=== PATIENT | male | born 1980 | race Caucasian/White ===

== ENCOUNTER 2018-01-01 09:01 | Emergency (ER) | payer OTHER, BC ==
[2018-01-01 09:21] VITALS: BP 153/89
[2018-01-01] MEDS ORDERED: DEXAMETHASONE SOD PHOS INJ 10 MG/1 ML VIAL IV ONE (09:57)
[2018-01-01] MEDS ORDERED: HYDROCODONE/ACETAMINOPHEN 5-325 MG (6 TAB/ER DISP) PO PRN (09:57)
--- NOTE | 2018-01-01 10:03 | ER Document Report ---
ED General - General Chief Complaint: Low Back Pain Stated Complaint: BACK,BUTTOCKS,LEG PAIN Time Seen by Provider: 01/01/18 09:27 Mode of Arrival: Ambulatory TRAVEL OUTSIDE OF THE [place] IN LAST 30 DAYS: No - HPI Notes: 37-year-old male with a history of chronic back pain presents to the ED for complaints of ascute exacerbation of chronic back pain. Denies any trauma. Patient has had multiple MRIs in the past. Has had chronic back pain since 2004 [place]. Patient was seen at the [facility] this morning, given a shot of Toradol 60 mg IM, was advised to come to the ER for further evaluation. Patient states he was seeing pain management and a spinal surgeon "years ago" but is no longer in pain management. Denies fevers, chills, chest pain,palpitations, shortness of breath, dyspnea, nausea, vomiting, diarrhea, abdominal pain, hematuria,blurred vision, double vision, loss of vision, speech changes, LH, dizziness, syncope, headaches, wheezing, ST, URI, neck pain, weakness, bowel or bladder dysfunction, saddle anesthesia, numbness or tingling in bilateral upper or lower extremities equally, muscle paralysis, weakness in bilateral upper or lower extremities equally or rash. States his pain is 7 out of 10. Mother drove patient. - Related Data Allergies/Adverse Reactions: codeine Allergy (Verified 01/01/18 09:09) Past Medical History - General Information source: Patient - Social History Smoking Status: Current Every Day Smoker Chew tobacco use (# tins/day): No Frequency of alcohol use: Occasional Drug Abuse: None Family History: Reviewed & Not Pertinent Patient has suicidal ideation: No Patient has homicidal ideation: No Renal/ Medical History: Denies: Hx Peritoneal Dialysis Past Surgical History: Reports: Hx Appendectomy Review of Systems - Review of Systems Constitutional: No symptoms reported EENT: No symptoms reported Cardiovascular: No symptoms reported Respiratory: No symptoms reported Gastrointestinal: No symptoms reported Genitourinary: No symptoms reported Male Genitourinary: No symptoms reported Musculoskeletal: See HPI Skin: No symptoms reported Hematologic/Lymphatic: No symptoms reported Neurological/Psychological: No symptoms reported Physical Exam - Vital signs Vitals: Temp Pulse Resp BP Pulse Ox 98.2 F 59 L 21 H 153/89 H 98 01/01/18 09:18 01/01/18 09:18 01/01/18 09:18 01/01/18 09:18 01/01/18 09:18 - Notes Notes: PHYSICAL EXAMINATION: GENERAL: Well-appearing, well-nourished and in no acute distress. HEAD: Atraumatic, normocephalic. EYES: Pupils equal round and reactive to light, extraocular movements intact, sclera anicteric, conjunctiva are normal. ENT: Nares patent, oropharynx clear without exudates. Moist mucous membranes. NECK: Normal range of motion, supple without lymphadenopathy LUNGS: Breath sounds clear to auscultation bilaterally and equal. No wheezes rales or rhonchi. HEART: Regular rate and rhythm without murmurs ABDOMEN: Soft, nontender, nondistended abdomen. No guarding, no rebound. No masses appreciated. Musculoskeletal: Normal range of motion, no pitting or edema. No cyanosis. NEUROLOGICAL: Cranial nerves grossly intact. Normal speech, normal gait. Normal sensory, motor exams. Pain with flexion and extension at 45 degrees, negative straight leg test. Normal hip rotation. DTR +2 in BLE equally. Strength 5 out of 5 both distally and proximally to bilateral lower extremities normal motor and sensory function in BLE equally. Distal pulses + 2 BLE equally. Noted paraspinal tenderness near L2 and L3 on left No spinal tenderness. No CVA tenderness bilaterally. Femoral pulses + 2 bilaterally and equally. No abrasions, scars, lacerations, ecchymosis of any recent trauma. normal gait. PSYCH: Normal mood, normal affect. SKIN: Warm, Dry, normal turgor, no rashes or lesions noted. Course - Re-evaluation Re-evalutation: 01/01/18 10:08 Presentation of a well appearing patient complaining of acute on chronic back pain. She is afebrile, vitals stable and in no acute distress no rapid progression of symptoms, systemic symptoms including fevers, chills, weight loss , history of recent bacterial infection, bilateral symptoms, numbness, weakness , difficulty walking, urinary retention or bowel incontinence, personal history of cancer, immunosuppression, diabetes, known AAA, or history of IV drug use. Exam is without point tenderness over vertebral bodies, pulsatile abdominal mass , and patient has symmetric and intact lower extremity strength, sensation, and reflexes without clonus. 2+ symmetric medial malleolar and dorsalis pedis pulses. Left paraspinal tenderness near L2-L3. Based on history and physical, I have a very low suspicion of a concerning etiology of pain including epidural compression syndrome, spinal infection, transverse myelitis, malignancy, abdominal aortic aneurysm, renal colic, acute lower extremity claudication, neurogenic claudication, ankylosing spondylitis, or other intra-abdominal process. Due to absence of concerning risk factors in history and physical as well as absence of rapidly progressive, severe, or bilateral symptoms, will defer imaging at this point. Plan to manage conservatively with outpatient analgesia, analgesia, and physical therapy. 8 mg of Decadron given as well as a [place]. Advised patient that he may become sedated from taking [place], do not drive, drink or operate heavy machinery while taking [place]. - Acetaminophen 650 q 4 + ibuprofen 600 q 6 - Continue normal daily activities as tolerated by pain - Provide with standard musculoskeletal back pain exercise instructions - Instruct to follow up with primary care provider if symptoms not improving and reevaluation within 24-48 hours by primary care provider. Orthopedic referral given. - Provide careful return precautions and concerning symptoms to watch for. Return immediately for any new or worsening symptoms. Follow up with primary care provider, call tomorrow to make followup appointment. - Vital Signs Vital signs: Temp Pulse Resp BP Pulse Ox 98.2 F 59 L 21 H 153/89 H 98 01/01/18 09:18 01/01/18 09:18 01/01/18 09:18 01/01/18 09:18 01/01/18 09:18 Discharge - Discharge Clinical Impression: Left sided sciatica Condition: Good Disposition: HOME, SELF-CARE Instructions: Muscle Strain ([facility]), Low Back Pain ([facility]), Oral Narcotic Medication ([facility]), Warm Packs ([facility]) Additional Instructions: LOW BACK PAIN: Three out of every four people will have an episode of disabling back pain during their lifetime. Most commonly the pain is due to straining of the muscles and ligaments in the low back. Usual treatment includes: (1) Rest on a firm surface. Avoid lying on your stomach. (2) Ice pack the painful area. After a few days, gentle heat may be used intermittently to relax the area, or ice packs can be continued. (3) Medication may be needed -- muscle relaxers and antiinflammatory medicines are commonly used. (4) As the back improves, exercises are prescribed to strengthen the back and abdominal muscles. Your doctor will advise you on the proper care for your back at each stage in your recovery. You may be better in a few days -- or healing may take several weeks. If new symptoms of a "herniated disc" (radiation of pain, numbness, or tingling down the back of the leg or weakness in the leg) occur, you should be re-examined. Further testing may be necessary. PAIN MEDICATION INJECTION: You have received an injection of a pain medication. You should experience significant pain relief within 45 minutes. If this injection was a narcotic -- it will impair your judgement, slow your reaction time and make you sleepy (as well as relieve your pain). Narcotics also can cause nausea. You should not drive, work with machinery, or perform any task requiring mental alertness until all effects of the medication are gone -- six to eight hours. Do not take any alcohol, or sedatives, and do not take any other medication without checking with your physician. MUSCLE RELAXERS: Muscle relaxing medications are usually prescribed for acute muscle spasm or injury to the neck and back. They are often combined with antiinflammatory pain medication for increased relief. You may stop the muscle relaxer when the pain and stiffness have improved. Start the medication again if spasms recur. Muscle relaxers may cause drowsiness, especially with the first dose. Do not operate machinery or drive while under the effects of the medication. Most muscle relaxers last up to 24 hours. Do not combine the medication with alcohol. ICE PACKS: Apply ice packs frequently against the painful area. Many different schedules are recommended, such as "20 minutes on, 20 minutes off" or "one hour ice, two hours rest." If you need to work, you may need to go longer between ice treatments. You should plan to have the area ice packed AT LEAST one fourth of the time. The ice should be applied over the wrap, tape, or splint, or over a layer of cloth -- not directly against the skin. Some ice bags have a built-in cloth and can be put directly on the skin. WARM PACKS: After approximately two days, apply gentle heat (such as a heating pad or hot water bottle) for about 20 to 30 minutes about every two hours -- at least four times daily. Warmth and elevation will help you make a more rapid recovery , and will ease the pain considerably. Do not use HOT heat, and never apply heat for longer than 30 minutes. The continuous heat can invisibly damage skin and muscles -- even when no burn is seen on the surface. Damaged muscles can make you MORE sore. FOLLOW-UP CARE: If you have been referred to a physician for follow-up care, call the physician s office for an appointment as you were instructed or within the next two days. If you experience worsening or a significant change in your symptoms, notify the physician immediately or return to the Emergency Department at any time for re-evaluation. Forms: Return to Work Referrals: HIRAM MILLER MD [ACTIVE STAFF] - Follow up in 3-5 days (prn) NARCISA CASTLE MD [ACTIVE STAFF] - Follow up in 3-5 days (prn)
[2018-01-01] MEDS ORDERED: DEXAMETHASONE SOD PHOS INJ 10 MG/1 ML VIAL IM ONE (10:17)
== END 2018-01-01 10:35 | disposition home or self-care (01) ==
LOC: ER 09:01
DX: M54.32 Sciatica, left side (principal); Z88.6 Allergy status to analgesic agent; F17.200 Nicotine dependence, unspecified, uncomplicated
CPT/HCPCS: 99283; 96372; J1100

== ENCOUNTER 2018-01-04 05:22 | Emergency (ER) | payer OTHER, BC ==
[2018-01-04] MEDS ORDERED: DIAZEPAM INJ 10 MG/2 ML DISP.SYRIN IM ONE (05:47)
--- NOTE | 2018-01-04 05:53 | ER Document Report ---
HPI - HPI Patient complains to provider of: Lower back pain Pain Level: 5 Context: Patient is a 37-year-old male that comes to the emergency department for chief complaint of lower back pain. He was seen here 3 days ago. He had an injection of dexamethasone and a shot of Toradol during that day, he states that yesterday he actually felt fine and he started using his tilt table and since he did that he started having intermittent sharp pains in his lower back and occasional shooting pains down the back of his leg. Patient has a history of chronic back pain, has had MRIs and spinal surgery evaluation in the past, has not had any procedures other than what he believes was nerve ablation a long time ago, had back injuries in the . No recent injury. Denies ever using IV drugs or street drugs, denies fever, denies incontinence. Past Medical History - General Information source: Patient - Social History Smoking Status: Never Smoker Frequency of alcohol use: None Drug Abuse: None Lives with: Spouse/Significant other Family History: Reviewed & Not Pertinent Renal/ Medical History: Denies: Hx Peritoneal Dialysis Past Surgical History: Reports: Hx Appendectomy, Hx Orthopedic Surgery - Unspecified lower back surgery Vertical Provider Document - CONSTITUTIONAL General Appearance: WD/WN, No Apparent Distress - Patient is calm and well- appearing unless he tries to move and then he appears to have sharp lower back pains - INFECTION CONTROL TRAVEL OUTSIDE OF THE [place] IN LAST 30 DAYS: No - HEENT HEENT: Atraumatic, Normocephalic - NECK Neck: Normal Inspection - RESPIRATORY Respiratory: Breath Sounds Normal, No Respiratory Distress - CARDIOVASCULAR Cardiovascular: Regular Rate, Regular Rhythm - GI/ABDOMEN Gastrointestinal: Abdomen Soft, Abdomen Non-Tender - BACK Back: negative: Normal Inspection - Tender over the left paraspinal muscles, otherwise nontender, no signs of trauma. No midline tenderness, no saddle anesthesia, no signs of trauma. Normal upper and lower extremity range of motion , normal strength, normal distal neurovascular exam. Negative straight leg raise test. - MUSCULOSKELETAL/EXTREMETIES Musculoskeletal/Extremeties: MACAMRYN, FROM, Non-Tender - NEURO Level of Consciousness: Awake, Alert, Appropriate - DERM Integumentary: Warm, Dry Course - Re-evaluation Re-evalutation: Patient appears to have re-strained his back. He does not have positive straight leg raise, however when he is changing positions he obviously has muscle spasms. He has no saddle anesthesia, no numbness, moves all extremities without difficulty, denies fever or IV drug abuse. Low suspicion of spinal cord impingement, epidural abscess, or other emergent etiology. Vital signs are unremarkable. Patient states he has good follow-up and has already scheduled an MRI of for follow-up with outpatient orthopedics. He has primary care follow-up as well. Patient will be provided with a few doses of diazepam for obvious bad muscle spasms which are keeping him from sleeping, he states he will try to use these to sleep mainly, he will continue current medications, discussed return precautions in detail. Patient states understanding and agreement with plan. - Vital Signs Vital signs: Temp Pulse Resp BP Pulse Ox 98.4 F 67 14 156/101 H 97 01/04/18 05:29 01/04/18 05:29 01/04/18 05:29 01/04/18 05:29 01/04/18 05:29 Discharge - Discharge Clinical Impression: Lower back pain Qualifiers: Chronicity: acute Back pain laterality: left Sciatica presence: without sciatica Qualified Code(s): M54.5 - Low back pain Condition: Stable Disposition: HOME, SELF-CARE Additional Instructions: Your evaluation is most consistent with mild lumbar muscular strain, nerve impingement, subsequent muscle spasm, and intermittent sciatic symptoms. Recommend putting heat on the area, rest, do gentle stretches, avoid lifting/ twisting. Take diazepam as prescribed as muscle relaxant, do not drive, mix with alcohol, mixed with any sedating substances while taking. Follow-up with your provider for additional management. Return immediately if you develop any concerning symptoms including numbness of the leg, inability to urinate, accidentally having a bowel movement, fever of 100.4 or greater, or any other concerning or worsening symptoms. Prescriptions: Diazepam [Valium 5 mg Tablet] 1 - 2 tab PO TID PRN #15 tablet PRN Reason: Forms: Return to Work Referrals: BRANDON JUDGE PA [Primary Care Provider] - Follow up as needed
[2018-01-04 07:19] VITALS: BP 142/83
== END 2018-01-04 06:55 | disposition home or self-care (01) ==
LOC: ER 05:22
DX: M54.5 Low back pain (principal); M62.838 Other muscle spasm
CPT/HCPCS: 99283; 96372; J3360